=== PATIENT | female | born 1995 | race Caucasian/White ===

== ENCOUNTER 2016-12-31 11:12 | Emergency (ER) | payer OTHER ==
[2016-12-31 13:13] LABS: RED BLOOD COUNT 3.65 M/UL (4.00-5.10); WHITE BLOOD COUNT 11.6 K/UL (4.5-11.0)
[2016-12-31 13:45] LABS: BUN/CREATININE RATIO 20 (0-10)
== END 2016-12-31 14:31 | disposition home or self-care (01) ==
LOC: ER1 11:12
PROVIDERS: Family Medicine
DX: O9A.212 Injury, poisoning and certain other consequences of external causes complicating pregnancy, second trimester (principal); S39.91XA Unspecified injury of abdomen, initial encounter; O99.332 Smoking (tobacco) complicating pregnancy, second trimester; F17.200 Nicotine dependence, unspecified, uncomplicated; W19.XXXA Unspecified fall, initial encounter; Y92.89 Other specified places as the place of occurrence of the external cause; Y99.0 Civilian activity done for income or pay
CPT/HCPCS: 36415; 76805; 80053; 85025; 99284; J7030

== ENCOUNTER 2022-01-31 23:08 | Emergency (ER) | payer OTHER ==
[2022-02-01 00:01] LABS: HEMOGLOBIN 17.3 gm/dl (12.3-15.3); RED BLOOD COUNT 5.6 M/UL (4.00-5.10); WHITE BLOOD COUNT 18.6 K/UL (4.5-11.0)
[2022-02-01 00:31] LABS: BUN/CREATININE RATIO 23 (0-10)
[2022-02-01] MEDS ORDERED: NAPROSYN500 MG PO (02:44)
[2022-02-01] MEDS ORDERED: OMNICEF 300 MG300 MG PO (03:40)
== END 2022-02-01 03:45 | disposition home or self-care (01) ==
LOC: ER1 23:08
PROVIDERS: Student in an Organized Health Care Education/Training Program
DX: S06.0X9A Concussion with loss of consciousness of unspecified duration, initial encounter (principal); S01.311A Laceration without foreign body of right ear, initial encounter; S40.211A Abrasion of right shoulder, initial encounter; Z23 Encounter for immunization; F17.210 Nicotine dependence, cigarettes, uncomplicated; V49.50XA Passenger injured in collision with unspecified motor vehicles in traffic accident, initial encounter; Y92.410 Unspecified street and highway as the place of occurrence of the external cause
CPT/HCPCS: 70450; 71045; 72125; 72170; 73030; 73060; 73080; 80053; 84703; 85025; 90471; 96374; 96375; 99284; J1885; J2270; J2405